=== PATIENT | female | born 1945 | race Caucasian/White ===

== ENCOUNTER 2016-08-01 09:58 | Emergency (ER) | payer MEDICARE ==
[2016-08-01 10:54] LABS: BASO % 0.2 % (0-6); EOS % 0.7 % (0-6); GRAN % 76.3 % (47-80); HEMATOCRIT 39.1 % (35.0-47.0); HEMOGLOBIN 12.9 gm/dl (11.6-16.0); LYMPH % 12.7 % (16-45); MEAN CELL VOLUME 93.8 fl (81-97); MEAN CORPUSCULAR HEMOGLOBIN 30.9 pg (27-33); MEAN PLATELET VOLUME 10.4 fl (7.4-10.4); MONO % 10.1 % (0-9); PLATELET COUNT 247 K/uL (130-400); RED BLOOD COUNT 4.17 M/uL (3.80-5.40); RED CELL DISTRIBUTION WIDTH 14.2 % (11.5-14.5); WHITE BLOOD COUNT W/O DIFF 5.4 K/uL (4.2-12.2)
[2016-08-01 11:07] LABS: ANION GAP 14.3 (7-16); BLOOD UREA NITROGEN 8 mg/dL (7-17); CARBON DIOXIDE 25.7 mmol/L (22-30); CREATININE 0.6 mg/dL (0.52-1.04); EST GLOMERULAR FILTRATION RATE > 60 ml/min; GLUCOSE,RANDOM 99 mg/dL (70-110)
--- NOTE | 2016-08-01 12:33 | Emergency Department Record ---
History of Present Illness - General Chief complaint: Mouth sores/ulcers Stated complaint: RED SPOTS ROOF OF MOUTH Time Seen by Provider: 08/01/16 10:27 Source: Patient Mode of Arrival: Ambulatory Limitations: No limitations - History of Present Illness Initial comments: pt has had a sore throat for 3 wks with difficulty swallowing, prod cough, sinus drainage. pt has had no fevers. pt is worried that she might have cancer as her sister had the same symptoms a year ago and had throat cancer and within a week of discovering it. MD complaint: Difficulty swallowing, Sore throat Onset/Timin -: Week(s) Location: Throat Severity: Moderate Severity scale (1-10): 8 Quality: Burning Consistency: Constant Improves with: None Worsens with: Swallowing Associated Symptoms: Cough, Pain with swallowing, Rhinorrhea, Sore throat - Related Data Home Medications Medication Instructions Recorded Confirmed Last Taken Bupropion HCl [Wellbutrin Xl] 300 mg PO DAILY 02/27/16 08/01/16 04/26/16 Dexlansoprazole [Dexilant] 60 mg PO DAILY 02/27/16 08/01/16 04/26/16 Estrogen,Con/M-Progest Acet 1 tab PO DAILY 02/27/16 08/01/16 04/26/16 [Prempro 0.625-2.5 mg Tablet] Latanoprost [Latanoprost] 1 drop EACH EYE DAILY 02/27/16 08/01/16 04/26/16 Previous Rx's Medication Instructions Recorded Azithromycin [Zithromax] 250 mg PO DAILY #6 tab 08/01/16 Allergies Allergy/AdvReac Type Severity Reaction Status Date / Time codeine AdvReac NAUSEA AND Verified 04/26/16 14:49 VOMITING Travel Screening - Travel/Exposure Within Last 30 Days Have you traveled within the last 30 days?: No Review of Systems Reviewed: No additional complaints except as noted below Constitutional: Reports: As per HPI. Denies: Chills, Fever, Malaise, Night sweats, Weakness, Weight change Eyes: Reports: As per HPI. Denies: Eye discharge, Eye pain, Photophobia, Vision change ENT: Reports: As per HPI. Denies: Congestion, Dental pain, Ear pain, Epistaxis , Hearing loss, Throat pain Respiratory: Reports: As per HPI. Denies: Cough, Dyspnea, Hemoptysis, Stridor, Wheezes Cardiovascular: Reports: As per HPI. Denies: Arrhythmia, Chest pain, Dyspnea on exertion, Edema, Murmurs, Orthopnea, Palpitations, Paroxysmal nocturnal dyspnea, Rheumatic Fever, Syncope Endocrine: Reports: As per HPI. Denies: Fatigue, Heat or cold intolerance, Polydipsia, Polyuria Gastrointestinal: Reports: As per HPI. Denies: Abdominal pain, Constipation, Diarrhea, Hematemesis, Hematochezia, Melena, Nausea, Vomiting Genitourinary: Reports: As per HPI. Denies: Abnormal menses, Discharge, Dyspareunia, Dysuria, Frequency, Hematuria, Incontinence, Retention, Urgency Musculoskeletal: Reports: As per HPI. Denies: Arthralgia, Back pain, Gout, Joint swelling, Myalgia, Neck pain Skin: Reports: As per HPI. Denies: Bruising, Change in color, Change in hair/ nails, Lesions, Pruritus, Rash Neurological: Reports: As per HPI. Denies: Abnormal gait, Confusion, Headache, Numbness, Paresthesias, Seizure, Tingling, Tremors, Vertigo, Weakness Psychiatric: Reports: As per HPI. Denies: Anxiety, Auditory hallucinations, Depression, Homicidal thoughts, Suicidal thoughts, Visual hallucinations Hematological/Lymphatic: Reports: As per HPI. Denies: Anemia, Blood Clots, Easy bleeding, Easy bruising, Swollen glands Past Medical History - SOCIAL HISTORY Smoking Status: Never smoker Alcohol Use: None Drug Use: None - RESPIRATORY Hx Respiratory Disorders: No - CARDIOVASCULAR Hx Cardio Disorders: No - NEURO Hx Neuro Disorders: No - GI Hx GI Disorders: Yes Hx Reflux: Yes - Hx Genitourinary Disorders: No - ENDOCRINE Hx Endocrine Disorders: No - MUSCULOSKELETAL Hx Musculoskeletal Disorders: No - PSYCH Hx Psych Problems: No - HEMATOLOGY/ONCOLOGY Hx Hematology/Oncology Disorders: No Family Medical History Any Significant Family History?: No Physical Exam - General General Appearance: Alert, Oriented x3, Cooperative, Mild distress - Head Head exam: Normal inspection - Eye Eye exam: Normal appearance, PERRL, EOMI Pupils: Normal accommodation - ENT ENT exam: Normal exam, Mucous membranes moist, Normal external ear exam, Normal orophraynx, TM's normal bilaterally Ear exam: Normal external inspection. negative: External canal tenderness Nasal Exam: Normal inspection. negative: Discharge, Sinus tenderness Mouth exam: Normal external inspection, Tongue normal Teeth exam: Normal inspection. negative: Dental caries Throat exam: Tonsillar erythema. negative: Tonsillar exudate - Neck Neck exam: Full ROM, Lymphadenopathy, Tenderness - Respiratory Respiratory exam: Normal lung sounds bilaterally. negative: Respiratory distress - Cardiovascular Cardiovascular Exam: Regular rate, Normal rhythm, Normal heart sounds - GI/Abdominal GI/Abdominal exam: Soft, Normal bowel sounds. negative: Tenderness - Rectal Rectal exam: Deferred - exam: Deferred - Extremities Extremities exam: Normal inspection, Full ROM, Normal capillary refill. negative: Tenderness - Back Back exam: Reports: Normal inspection, Full ROM. Denies: Muscle spasm, Rash noted, Tenderness - Neurological Neurological exam: Alert, CN II-XII intact, Normal gait, Oriented X3 - Psychiatric Psychiatric exam: Normal affect, Normal mood - Skin Skin exam: Dry, Intact, Normal color, Warm Course Vital Signs 08/01/16 10:04 Temperature 99.0 F Pulse Rate 91 H Respiratory 18 Rate Blood Pressure 130/70 Pulse Ox 96 Medical Decision Making - Management Options MDM Management: Additional Work-up Planned (e.g. ADM/Transfer/OP Study) - Data Complexity MDM Data: Labs Ordered and/or Reviewed, X-Ray Ordered and/or Reviewed - Lab Data Result diagrams: 08/01/16 10:45 08/01/16 10:45 Lab Results 08/01/16 08/01/16 08/01/16 Range/Units 10:45 10:45 10:45 WBC 5.4 (4.2-12.2) K/uL RBC 4.17 (3.80-5.40) M/uL Hgb 12.9 (11.6-16.0) gm/dl Hct 39.1 (35.0-47.0) % MCV 93.8 (81-97) fl MCH 30.9 (27-33) pg MCHC 33.0 (32-36) g/dl RDW 14.2 (11.5-14.5) % Plt Count 247 (130-400) K/uL MPV 10.4 (7.4-10.4) fl Gran % 76.3 (47-80) % Lymphocytes % 12.7 L (16-45) % Monocytes % 10.1 H (0-9) % Eosinophils % 0.7 (0-6) % Basophils % 0.2 (0-6) % Sodium 139 (136-145) mmol/L Potassium 3.7 (3.5-5.1) mmol/L Chloride 99 (98-107) mmol/L Carbon Dioxide 25.7 (22-30) mmol/L Anion Gap 14.3 (7-16) BUN 8 (7-17) mg/dL Creatinine 0.6 (0.52-1.04) mg/dL Estimated GFR > 60 ml/min Random Glucose 99 (70-110) mg/dL Calcium 8.6 (8.5-10.1) mg/dL Group A Strep Screen Negative (NEGATIVE) - Radiology Data Radiology results: Report reviewed, Image reviewed Disposition Disposition: Discharge Clinical Impression: Bronchitis Pharyngitis Qualifiers: Pharyngitis/tonsillitis etiology: unspecified etiology Qualified Code(s): J02.9 - Acute pharyngitis, unspecified Sinusitis Qualifiers: Sinusitis location: unspecified location Chronicity: acute Recurrence: non- recurrent Qualified Code(s): J01.90 - Acute sinusitis, unspecified Disposition: Home, Self-Care Condition: (1) Good Instructions: Acute Bronchitis (ED), Pharyngitis (ED), Sinusitis (ED) Additional Instructions: follow up with family doctor. return sooner if worse. if symptoms continue see an ENT physician Prescriptions: Azithromycin [Zithromax] 250 mg PO DAILY #6 tab Forms: Patient Portal Access
--- NOTE | 2016-08-04 13:36 | RADIOLOGY REPORT ---
EXAM: CHEST, TWO VIEWS HISTORY: CHEST PAIN. TECHNIQUE: Frontal and lateral views of the chest were obtained. Comparison: 02/27/16 chest. FINDINGS: The heart size is normal. Mild elevation of the left hemidiaphragm. The lungs are clear. No pneumothorax. IMPRESSION: NO ACUTE CARDIOPULMONARY PROCESS. JOB NUMBER: [] MTDD
--- NOTE | 2016-08-04 13:41 | CT SCAN REPORT ---
EXAM: CT OF THE NECK HISTORY: COUGH. TECHNIQUE: CT of the neck was performed following IV administration of 100 ml of Omnipaque 300 contrast. Axial images were obtained with coronal and sagittal reconstructions. Comparison: None. FINDINGS: Limited evaluation of the brain parenchyma is unremarkable. The globes are intact. Mucosal thickening of the ethmoid air cells bilaterally. The osseous structures are grossly intact. Limited evaluation of the lung apices is unremarkable. The visualized thyroid gland enhances normally. The parotid and submandibular glands are unremarkable. The visualized portions of the nasopharynx, oropharynx, and hypopharynx is unremarkable. The prevertebral soft tissues are normal. The airway is widely patent. No abnormal fluid collections or masses. The epiglottis and aryepiglottic folds are normal. IMPRESSION: MUCOSAL THICKENING OF THE ETHMOID AIR CELLS. THE REMAINDER IS UNREMARKABLE. JOB NUMBER: [id number] MTDD
== END 2016-08-01 12:50 | disposition home or self-care (01) ==
LOC: ER 09:58
DX: J20.9 Acute bronchitis, unspecified (principal); J02.9 Acute pharyngitis, unspecified; J01.90 Acute sinusitis, unspecified; R13.10 Dysphagia, unspecified
CPT/HCPCS: 99283; 99284; 85025; 80048; 87880; 71020; 70491; Q9967

== ENCOUNTER 2017-01-21 15:12 | Emergency (ER) | payer MEDICARE ==
--- NOTE | 2017-01-21 15:29 | Emergency Department Record ---
History of Present Illness - General Chief complaint: Female Urogenital Problem Stated complaint: UTI ? Time Seen by Provider: 01/21/17 15:23 Source: Patient Mode of Arrival: Ambulatory Limitations: No limitations - History of Present Illness Initial comments: The patient is here due to mild dysuria for 2-3 days. She denies any AP, nausea , vomiting, or back pain. She feels like she has a UTI. MD Complaint: Dysuria Onset/Timin -: Days(s) Severity scale (1-10): 2 Quality: Cramping, Dull Improves with: None Worsens with: Urination Patient : No Associated Symptoms: Denies other symptoms - Related Data Sexually active: No Home Medications Medication Instructions Recorded Confirmed Last Taken Bupropion HCl [Wellbutrin Xl] 300 mg PO DAILY 02/27/16 01/21/17 04/26/16 Estrogen,Con/M-Progest Acet 1 tab PO DAILY 02/27/16 01/21/17 04/26/16 [Prempro 0.625-2.5 mg Tablet] Latanoprost [Latanoprost] 1 drop EACH EYE DAILY 02/27/16 01/21/17 04/26/16 Omeprazole [Prilosec] 20 mg PO DAILY 01/21/17 01/21/17 Unknown Allergies Allergy/AdvReac Type Severity Reaction Status Date / Time codeine AdvReac NAUSEA AND Verified 04/26/16 14:49 VOMITING Travel Screening - Travel/Exposure Within Last 30 Days Have you traveled within the last 30 days?: No Review of Systems Constitutional: Denies: Chills, Fever Eyes: Denies: Eye discharge ENT: Denies: Congestion Respiratory: Denies: Cough, Dyspnea Past Medical History - SOCIAL HISTORY Smoking Status: Never smoker Alcohol Use: None Drug Use: None - RESPIRATORY Hx Respiratory Disorders: No - CARDIOVASCULAR Hx Cardio Disorders: No - NEURO Hx Neuro Disorders: No - GI Hx GI Disorders: Yes Hx Reflux: Yes - Hx Genitourinary Disorders: No - ENDOCRINE Hx Endocrine Disorders: No - MUSCULOSKELETAL Hx Musculoskeletal Disorders: No - PSYCH Hx Psych Problems: No - HEMATOLOGY/ONCOLOGY Hx Hematology/Oncology Disorders: No Family Medical History Any Significant Family History?: No Physical Exam - General General Appearance: Alert, Oriented x3, Cooperative, No acute distress - Head Head exam: Atraumatic, Normocephalic, Normal inspection - Eye Eye exam: Normal appearance, PERRL - Neck Neck exam: Normal inspection, Full ROM. negative: Tenderness - Respiratory Respiratory exam: Normal lung sounds bilaterally. negative: Respiratory distress - Cardiovascular Cardiovascular Exam: Regular rate, Normal rhythm, Normal heart sounds - GI/Abdominal GI/Abdominal exam: Soft, Normal bowel sounds. negative: Tenderness - Back Back exam: Denies: CVA tenderness (R), CVA tenderness (L) Course Vital Signs 01/21/17 15:19 Temperature 98.9 F Pulse Rate 18 L Respiratory 78 H Rate Blood Pressure 136/71 Pulse Ox 98 - Reevaluation(s) Reevaluation #1: I did inform the patient of the normal UA and the need for f/u with her PCP. 01/21/17 15:47 Disposition Disposition: Discharge Clinical Impression: History of dysuria Disposition: Home, Self-Care Condition: (1) Good Instructions: Dysuria (ED) Additional Instructions: Please drink plenty of fluids and see your PCP for further evaluation. Forms: Patient Portal Access Time of Disposition: 15:48 Quality - Quality Measures Quality Measures: N/A - Blood Pressure Screening View Details: Yes Blood Pressure Classification: Pre-Hypertensive BP Reading Systolic Measurement: 136 Diastolic Measurement: 71 Screening for High Blood Pressure: < Pre-Hypertensive BP, F/U Documented > [ G8950] Pre-Hypertensive Follow-up Interventions: Follow-up with rescreen every year.
[2017-01-21 15:36] LABS: URINE APPEARANCE CLEAR; URINE BILIRUBIN NEGATIVE (NEGATIVE); URINE BLOOD NEGATIVE (NEGATIVE); URINE COLOR YELLOW; URINE GLUCOSE (UA) NEGATIVE (NEGATIVE); URINE KETONE NEGATIVE (NEGATIVE); URINE LEUKOCYTE ESTERASE NEGATIVE (NEGATIVE); URINE NITRITE NEGATIVE (NEGATIVE); URINE PROTEIN NEGATIVE (NEGATIVE); URINE UROBILINOGEN 0.2 E.U./dL (0.20 - 1.00)
== END 2017-01-21 16:10 | disposition home or self-care (01) ==
LOC: ER 15:12
DX: R30.0 Dysuria (principal)
CPT/HCPCS: 81003; 99282

== ENCOUNTER 2017-03-04 14:50 | Emergency (ER) | payer MEDICARE ==
--- NOTE | 2017-03-04 15:15 | Emergency Department Record ---
History of Present Illness - General Chief complaint: ENT Stated complaint: SORE THROAT Time Seen by Provider: 03/04/17 15:07 Source: Patient Mode of Arrival: Ambulatory Limitations: No limitations - History of Present Illness Initial comments: 71 yo female presents with sore throat, ear aches, and cough. The onset was a few days ago. She denies any nausea or vomiting. No diarrhea. No rash. The cough is now productive. She had a brief episode of nausea and vomiting 2 days ago but that has resolved. No chest or abdominal pain. No edema. Her grandson has been ill as well. PCP Hankenson. LOVING complaint: Sore throat Onset/Timin -: Days(s) Location: R ear, L ear, Throat Severity: Moderate Quality: Aching Consistency: Intermittent Improves with: None Worsens with: None Associated Symptoms: Cough, Sore throat - Related Data Previous Rx's Medication Instructions Recorded Azithromycin [Zithromax] 250 mg PO DAILY #6 tab 03/04/17 Allergies Allergy/AdvReac Type Severity Reaction Status Date / Time codeine AdvReac NAUSEA AND Verified 03/04/17 15:14 VOMITING Travel Screening - Travel/Exposure Within Last 30 Days Have you traveled within the last 30 days?: No Review of Systems Constitutional: Denies: Chills, Fever, Malaise, Weakness Eyes: Denies: Eye discharge, Eye pain, Photophobia ENT: Reports: As per HPI, Ear pain, Throat pain. Denies: Congestion Respiratory: Reports: Cough. Denies: Dyspnea, Wheezes Cardiovascular: Denies: Chest pain, Palpitations, Syncope Endocrine: Denies: Fatigue Gastrointestinal: Denies: Abdominal pain, Diarrhea, Nausea, Vomiting Genitourinary: Denies: Dysuria, Urgency Musculoskeletal: Denies: Arthralgia, Back pain, Joint swelling, Myalgia, Neck pain Skin: Denies: Bruising, Change in color, Rash Neurological: Denies: Abnormal gait, Headache, Numbness, Vertigo, Weakness Psychiatric: Denies: Anxiety Hematological/Lymphatic: Denies: Anemia, Blood Clots, Easy bleeding, Easy bruising, Swollen glands Past Medical History - SOCIAL HISTORY Smoking Status: Never smoker Alcohol Use: None Drug Use: None - RESPIRATORY Hx Respiratory Disorders: No - CARDIOVASCULAR Hx Cardio Disorders: No - NEURO Hx Neuro Disorders: No - GI Hx GI Disorders: Yes Hx Reflux: Yes - Hx Genitourinary Disorders: No - ENDOCRINE Hx Endocrine Disorders: No - MUSCULOSKELETAL Hx Musculoskeletal Disorders: No - PSYCH Hx Psych Problems: No - HEMATOLOGY/ONCOLOGY Hx Hematology/Oncology Disorders: No Family Medical History Any Significant Family History?: No Physical Exam - General General Appearance: Alert, Oriented x3, Cooperative, No acute distress Limitations: No limitations - Head Head exam: Atraumatic, Normocephalic, Normal inspection - Eye Eye exam: Normal appearance. negative: Conjunctival injection, Periorbital swelling, Scleral icterus - ENT ENT exam: Normal exam, Mucous membranes moist Ear exam: Normal external inspection Nasal Exam: Discharge (clear) Mouth exam: Normal external inspection Teeth exam: Normal inspection Throat exam: Tonsillar erythema. negative: Tonsillar exudate, R peritonsillar mass, L peritonsillar mass - Neck Neck exam: Normal inspection - Respiratory Respiratory exam: Normal lung sounds bilaterally. negative: Accessory muscle use, Decreased breath sounds, Respiratory distress, Rhonchi, Stridor, Wheezes - Cardiovascular Cardiovascular Exam: Regular rate, Normal rhythm, Normal heart sounds Peripheral Pulses: 2+: Radial (R), Radial (L) - GI/Abdominal GI/Abdominal exam: Soft. negative: Tenderness - Rectal Rectal exam: Deferred - exam: Deferred - Extremities Extremities exam: Normal inspection. negative: Tenderness - Back Back exam: Denies: CVA tenderness (R), CVA tenderness (L) - Neurological Neurological exam: Alert, CN II-XII intact, Oriented X3. negative: Motor sensory deficit - Psychiatric Psychiatric exam: Normal affect, Normal mood. negative: Agitated, Anxious - Skin Skin exam: Dry, Intact, Normal color, Warm Course Vital Signs 03/04/17 15:05 Temperature 98.8 F Pulse Rate 88 Respiratory 20 Rate Blood Pressure 124/105 Pulse Ox 99 - Reevaluation(s) Reevaluation #1: Vitals reviewed No acute changes, no fever, no hypoxia or tachycardia 03/04/17 15:15 The strep and Flu are negative Given the productive sputum she will be treated 03/04/17 16:08 Disposition Disposition: Discharge Clinical Impression: Pharyngitis Qualifiers: Pharyngitis/tonsillitis etiology: unspecified etiology Qualified Code(s): J02.9 - Acute pharyngitis, unspecified Disposition: Home, Self-Care Condition: (1) Good Instructions: Pharyngitis (ED) Additional Instructions: Stay well hydrated Return if worse, fevers, short of breath or any concerns Follow up with your doctor in the next week if not improving Prescriptions: Azithromycin [Zithromax] 250 mg PO DAILY #6 tab Forms: Patient Portal Access Time of Disposition: 16:10 Quality - Quality Measures Quality Measures: N/A - Blood Pressure Screening Does Patient Have Any of the Following: No Blood Pressure Classification: Hypertensive Reading Systolic Measurement: 124 Diastolic Measurement: 105 Screening for High Blood Pressure: < Pre-Hypertensive BP, F/U Documented > [ G8950] Pre-Hypertensive Follow-up Interventions: Referral to alternative/primary care provider.
[2017-03-04 16:06] LABS: INFLUENZA A NEGATIVE (NEGATIVE); INFLUENZA B NEGATIVE (NEGATIVE); STREP A SCREEN NEGATIVE (NEGATIVE)
== END 2017-03-04 16:20 | disposition home or self-care (01) ==
LOC: ER 14:50
DX: J02.9 Acute pharyngitis, unspecified (principal)
CPT/HCPCS: 87400; 87880; 99282

== ENCOUNTER 2017-04-28 06:39 | Day surgery (SDC) | payer MEDICARE ==
[~2017-04-28 06:39] MED LIST: FAMOTIDINE 20MG TABLET PO ONE; MECLIZINE 25 MG TABLET PO ONE; METOCLOPRAMIDE 10 MG TABLET PO ONE
[2017-04-28] MEDS ORDERED: *PACU ONLY* KETAMINE HCL 10 MG/ML (20ML) VIAL IV ONE (06:40)
[2017-04-28] MEDS ORDERED: 0.9 % SODIUM CHLORIDE 10 ML VIAL IVP ONE (06:40)
[2017-04-28] MEDS ORDERED: DEXAMETHASONE PRESERVATIVE FREE 10MG/ML VIAL IV ONE (06:40)
[2017-04-28] MEDS ORDERED: BUPIVACAINE 0.75% W/EPI MPF 30ML VIAL IVP ONE (06:40)
[2017-04-28] MEDS ORDERED: MIDAZOLAM HCL 2MG/2ML VIAL IV ONE (06:40)
[2017-04-28] MEDS ORDERED: BUPIVACAINE 0.25% MPF 30ML VIAL IVP ONE (06:40)
[2017-04-28] MEDS ORDERED: LIDOCAINE 1% W/EPI 1:200,000 MPF 30ML SQ ONE (06:40)
[2017-04-28] MEDS ORDERED: PROPOFOL 10 MG/ML VIAL IV ONE (06:40)
--- NOTE | 2017-04-28 16:03 | Operative Note - [employer] ---
DATE OF SURGERY: 04/27/17 PREOPERATIVE DIAGNOSIS: RIGHT CERVICAL RADICULITIS, ICD-10 CODE = M54.13. OPERATION: FLUOROSCOPICALLY-GUIDED CERVICAL EPIDURAL INJECTION RIGHT QUADRANT C5-6. SURGEON: SHAHRIAR ROSAS D.O. ANESTHESIA: LOCAL SEDATION. ANESTHESIA PROVIDER: PADMINI ALVAREZ CRNA. INDICATION: This patient presents with pain, which starts in the neck but then extends into the shoulder and arm. Diagnostic studies reviewed showing a 4-5 and a 5-6 disc. PROCEDURE: Intravenous line, vital sign monitoring, IV sedation, prepped, draped, sterile technique. Consistent with the pattern of pain into the right shoulder and arm at 5-6, skin infiltrated then a 20-gauge, 2.5 inch Tuohy needle with [id number]. 5 mL of 0.125% Marcaine with Dexamethasone injected. Needle removed. Neck cleaned. Topical antibiotic. Sterile dressing applied. We will monitor and evaluate. JOB NUMBER: [id number] MTDD
== END 2017-04-28 08:42 | disposition home or self-care (01) ==
LOC: SUR 06:39
PROVIDERS: ATTEND Pain Medicine Interventional Pain Medicine
DX: M54.13 Radiculopathy, cervicothoracic region (principal)
CPT/HCPCS: 62321; 01936; J1100; J3490

== ENCOUNTER 2018-03-13 20:11 | Emergency (ER) | payer MEDICARE ==
[2018-03-13 20:34] LABS: URINE APPEARANCE CLOUDY; URINE BILIRUBIN NEGATIVE (NEGATIVE); URINE BLOOD NEGATIVE (NEGATIVE); URINE COLOR YELLOW; URINE GLUCOSE (UA) NEGATIVE (NEGATIVE); URINE KETONE NEGATIVE (NEGATIVE); URINE LEUKOCYTE ESTERASE TRACE (NEGATIVE); URINE NITRITE NEGATIVE (NEGATIVE); URINE PROTEIN NEGATIVE (NEGATIVE); URINE UROBILINOGEN 0.2 E.U./dL (0.20 - 1.00)
--- NOTE | 2018-03-13 20:36 | Emergency Department Record ---
History of Present Illness - General Chief complaint: Female Urogenital Problem Stated complaint: "I THINK MY BLADDER IS FALLING OUT" Time Seen by Provider: 03/13/18 20:21 Source: Patient Mode of Arrival: Ambulatory Limitations: No limitations - History of Present Illness Initial comments: 72 yo female presents with a feeling of pressure in the bladder area. She was bearing down and was worried it prolapsed. This has occurred in her sister in the past but not her. No retention of urine or incontinence. No fevers or chills. No hematuria. She has had some urinary frequency. No difficulty with bowel movements but she is very gassy. No history of pelvic surgery in the past. She does report doing a lot of lifting recently as well. MD Complaint: Pelvic pain -: Hour(s) Location: Perineum Radiation: Non-radiating Severity: Moderate Quality: Other Consistency: Intermittent Improves with: None Worsens with: Urination - Related Data Home Medications Medication Instructions Recorded Confirmed Last Taken Meclizine HCl [Antivert] 25 mg PO QHS 03/13/18 03/13/18 03/13/18 Allergies Allergy/AdvReac Type Severity Reaction Status Date / Time codeine AdvReac NAUSEA AND Verified 03/04/17 15:14 VOMITING Review of Systems Constitutional: Denies: Chills, Fever, Weakness Eyes: Denies: Eye discharge ENT: Denies: Congestion, Throat pain Respiratory: Denies: Cough Cardiovascular: Denies: Chest pain, Syncope Endocrine: Denies: Fatigue Gastrointestinal: Reports: As per HPI, Abdominal pain. Denies: Diarrhea, Nausea , Vomiting Genitourinary: Reports: As per HPI, Dysuria. Denies: Frequency, Hematuria, Retention Musculoskeletal: Denies: Arthralgia, Back pain, Neck pain Skin: Denies: Bruising, Change in color, Rash Neurological: Denies: Numbness, Weakness Psychiatric: Denies: Anxiety Hematological/Lymphatic: Denies: Easy bleeding, Easy bruising Past Medical History - SOCIAL HISTORY Smoking Status: Never smoker Alcohol Use Comment: 1 drink every night - RESPIRATORY Hx Respiratory Disorders: No - CARDIOVASCULAR Hx Cardio Disorders: No - NEURO Hx Neuro Disorders: No - GI Hx GI Disorders: Yes Hx Reflux: Yes Comment:: hx of bowel blockage no surgery - Hx Genitourinary Disorders: Yes Hx Bladder Problem: Yes (iurgency stress incontinence) - ENDOCRINE Hx Endocrine Disorders: No - MUSCULOSKELETAL Hx Musculoskeletal Disorders: Yes Hx Arthritis: Yes - PSYCH Hx Psych Problems: Yes Hx Depression: Yes - HEMATOLOGY/ONCOLOGY Hx Hematology/Oncology Disorders: No Family Medical History Hx Cancer: Father, Brother/Sister Hx Heart Disease: Mother, Brother/Sister Hx HTN: Mother Physical Exam - General General Appearance: Alert, Oriented x3, Cooperative, No acute distress Limitations: No limitations - Head Head exam: Atraumatic, Normal inspection - Eye Eye exam: Normal appearance. negative: Conjunctival injection, Scleral icterus - ENT ENT exam: Normal exam Ear exam: Normal external inspection Nasal Exam: Normal inspection Mouth exam: Normal external inspection - Neck Neck exam: Normal inspection - GI/Abdominal GI/Abdominal exam: Soft. negative: Distended, Guarding, Rebound, Rigid, Tenderness - Rectal Rectal exam: Other (Normal inspection) - exam: Abnormal external exam, Normal external exam, Normal speculum exam, Other (No visible prolapse, the tissues are soft on examination, no masses). negative: Adnexal mass (L), Adnexal mass (R), Adnexal tenderness (L), Adnexal tenderness (R), Cervical discharge, cervical motion tenderness, Vaginal bleeding , Vaginal discharge, Vaginal erythema - Extremities Extremities exam: Normal inspection - Neurological Neurological exam: Alert, Oriented X3 - Psychiatric Psychiatric exam: Normal affect, Normal mood - Skin Skin exam: Dry, Intact, Normal color, Warm Course Vital Signs 03/13/18 20:21 Temperature 98.9 F Pulse Rate [ 80 Pulse Ox Probe] Respiratory 20 Rate Blood Pressure 155/95 [Right Arm] Pulse Ox 97 - Reevaluation(s) Reevaluation #1: 03/13/18 20:43 No acute sign of UTI. 03/13/18 20:47 No prolapse that is visible on examination Disposition Disposition: Discharge Clinical Impression: Dysuria, Pelvic pain in female Disposition: Home, Self-Care Condition: (1) Good Instructions: Pelvic Pain in Women (ED) Additional Instructions: Call the marine electronics technician's office tomorrow for follow up Avoid heavy lifting or bearing down. Return if you have pain or see the bladder protruding Referrals: CARISSA MARTINES D.O. [DOCTOR OF OSTEOPATH] - Forms: Patient Portal Access Time of Disposition: 20:48 Quality - Quality Measures Quality Measures: N/A - Blood Pressure Screening Does Patient Have Any of the Following: No Blood Pressure Classification: Hypertensive Reading Systolic Measurement: 155 Diastolic Measurement: 95 Screening for High Blood Pressure: < Pre-Hypertensive BP, F/U Documented > [ G8950] Pre-Hypertensive Follow-up Interventions: Referral to alternative/primary care provider.
[2018-03-13 20:41] LABS: URINE BACTERIA NONE SEEN; URINE EPITHELIAL CELLS 0 - 2 (FEW); URINE RBC NONE SEEN (NONE SEEN); URINE WBC 0 - 2 (0-2/hpf)
== END 2018-03-13 20:57 | disposition home or self-care (01) ==
LOC: ER 20:11
DX: R10.2 Pelvic and perineal pain (principal); R30.0 Dysuria
CPT/HCPCS: 81001; 99284

== ENCOUNTER 2018-05-04 08:31 | Emergency (ER) | payer MEDICARE ==
[2018-05-04] MEDS ORDERED: MAGNESIUM HYDROXIDE/AL HYDROX 30 ML, LIDOCAINE VISC 2% 15ML 15 ML PO ONE ×2 (09:48)
[2018-05-04] MEDS ORDERED: ONDANSETRON HCL IV 4 MG/2 ML VIAL IVP ONE (09:48)
[2018-05-04] MEDS ORDERED: 0.9 % SODIUM CHLORIDE 1000ML 1,000 ML IV PRN (09:49)
--- NOTE | 2018-05-04 10:06 | Emergency Department Record ---
History of Present Illness - General Chief Complaint: Abdominal Pain Stated Complaint: STOMACH PAINS Time Seen by Provider: 05/04/18 08:52 Source: Patient, RN notes reviewed Mode of Arrival: Ambulatory - History of Present Illness Initial Comments: Patient has epigastric abd pain which started one week ago and she is using motrin 600 mg three times a day for pain post hysterectomy and bladder suspension about one month ago. Patient stopped ibuprofen 36 hours ago. Hysterectomy mar Currently she takes omeprazole 20 mg once aday, She denies blood in her stool or black stool. BM this am Onset/Timin -: Month(s) Location: Diffuse Severity: Moderate Severity scale (1-10): 7 Quality: Burning Consistency: Intermittent Improves With: Medication Worsens With: Other - Related Data Previous Rx's Medication Instructions Recorded Sucralfate [Carafate] 1 gm PO QIDACHS #40 tablet 05/04/18 Allergies Allergy/AdvReac Type Severity Reaction Status Date / Time codeine AdvReac NAUSEA AND Verified 05/04/18 08:35 VOMITING Travel Screening - Travel/Exposure Within Last 30 Days Have you traveled within the last 30 days?: No - Travel/Exposure Within Last Year Have you traveled outside the [place] in the last year?: No - Additonal Travel Details Have you been exposed to anyone with a communicable illness?: No - Travel Symptoms Symptom Screening: None Review of Systems Reviewed: No additional complaints except as noted below Constitutional: Reports: As per HPI. Denies: Chills, Fever, Malaise, Night sweats, Weakness, Weight change Eyes: Reports: As per HPI. Denies: Eye discharge, Eye pain, Photophobia, Vision change ENT: Reports: As per HPI. Denies: Congestion, Dental pain, Ear pain, Epistaxis , Hearing loss, Throat pain Respiratory: Reports: As per HPI. Denies: Cough, Dyspnea, Hemoptysis, Stridor, Wheezes Cardiovascular: Reports: As per HPI. Denies: Arrhythmia, Chest pain, Dyspnea on exertion, Edema, Murmurs, Orthopnea, Palpitations, Paroxysmal nocturnal dyspnea, Rheumatic Fever, Syncope Endocrine: Reports: As per HPI. Denies: Fatigue, Heat or cold intolerance, Polydipsia, Polyuria Gastrointestinal: Reports: As per HPI, Abdominal pain. Denies: Constipation, Diarrhea, Hematemesis, Hematochezia, Melena, Nausea, Vomiting Genitourinary: Reports: As per HPI. Denies: Abnormal menses, Discharge, Dyspareunia, Dysuria, Frequency, Hematuria, Incontinence, Retention, Urgency Musculoskeletal: Reports: As per HPI. Denies: Arthralgia, Back pain, Gout, Joint swelling, Myalgia, Neck pain Skin: Reports: As per HPI. Denies: Bruising, Change in color, Change in hair/ nails, Lesions, Pruritus, Rash Neurological: Reports: As per HPI. Denies: Abnormal gait, Confusion, Headache, Numbness, Paresthesias, Seizure, Tingling, Tremors, Vertigo, Weakness Psychiatric: Reports: As per HPI. Denies: Anxiety, Auditory hallucinations, Depression, Homicidal thoughts, Suicidal thoughts, Visual hallucinations Hematological/Lymphatic: Reports: As per HPI. Denies: Anemia, Blood Clots, Easy bleeding, Easy bruising, Swollen glands Past Medical History - SOCIAL HISTORY Smoking Status: Never smoker Alcohol Use: Rare Drug Use: None - RESPIRATORY Hx Respiratory Disorders: No - CARDIOVASCULAR Hx Cardio Disorders: No - NEURO Hx Neuro Disorders: No - GI Hx GI Disorders: Yes Hx Reflux: Yes Comment:: hx of bowel blockage no surgery - Hx Genitourinary Disorders: Yes Hx Bladder Problem: Yes (iurgency stress incontinence) - ENDOCRINE Hx Endocrine Disorders: No - MUSCULOSKELETAL Hx Musculoskeletal Disorders: Yes Hx Arthritis: Yes - PSYCH Hx Psych Problems: Yes Hx Depression: Yes - HEMATOLOGY/ONCOLOGY Hx Hematology/Oncology Disorders: No Family Medical History Any Significant Family History?: Yes Hx Cancer: Father, Brother/Sister Hx Heart Disease: Mother, Brother/Sister Hx HTN: Mother Physical Exam - General General Appearance: Alert, Oriented x3, Cooperative, No acute distress - Head Head exam: Normal inspection - Eye Eye exam: Normal appearance, PERRL Pupils: Normal accommodation - ENT ENT exam: Normal exam, Mucous membranes moist, Normal external ear exam, Normal orophraynx, TM's normal bilaterally Ear exam: Normal external inspection. negative: External canal tenderness Nasal Exam: Normal inspection. negative: Discharge, Sinus tenderness Mouth exam: Normal external inspection, Tongue normal Teeth exam: Normal inspection. negative: Dental caries Throat exam: Normal inspection. negative: Tonsillar erythema, Tonsillar exudate - Neck Neck exam: Normal inspection, Full ROM. negative: Tenderness - Respiratory Respiratory exam: Normal lung sounds bilaterally. negative: Respiratory distress - Cardiovascular Cardiovascular Exam: Regular rate, Normal rhythm, Normal heart sounds - GI/Abdominal GI/Abdominal exam: Soft, Normal bowel sounds, Tenderness (epigastric pain) - Rectal Rectal exam: Deferred - exam: Deferred - Extremities Extremities exam: Normal inspection, Full ROM, Normal capillary refill. negative: Tenderness - Back Back exam: Reports: Normal inspection, Full ROM. Denies: Muscle spasm, Rash noted, Tenderness - Neurological Neurological exam: Alert, Normal gait, Oriented X3, Reflexes normal - Psychiatric Psychiatric exam: Normal affect, Normal mood - Skin Skin exam: Dry, Intact, Normal color, Warm Course Vital Signs 05/04/18 08:38 Temperature 98.4 F Pulse Rate 82 Respiratory 16 Rate Blood Pressure 140/75 Pulse Ox 100 - Reevaluation(s) Reevaluation #1: 05/04/18 10:24 feeling better Medical Decision Making - Lab Data Result diagrams: 05/04/18 09:35 05/04/18 09:35 Disposition Clinical Impression: Gastritis Qualifiers: Gastritis type: unspecified gastritis Chronicity: acute Gastritis bleeding: without bleeding Qualified Code(s): K29.00 - Acute gastritis without bleeding Disposition: Home, Self-Care Condition: (1) Good Instructions: Gastritis (ED) Additional Instructions: follow up with family in 2 day for a recheck stop motrin use tylenol for pain Prescriptions: Sucralfate [Carafate] 1 gm PO QIDACHS #40 tablet Forms: Patient Portal Access Time of Disposition: 11:33 Quality - Quality Measures Quality Measures: N/A - Blood Pressure Screening Does Patient Have Any of the Following: No Blood Pressure Classification: Hypertensive Reading Systolic Measurement: 140 Diastolic Measurement: 75 Screening for High Blood Pressure: < Pre-Hypertensive BP, F/U Documented > [ [id number]] Pre-Hypertensive Follow-up Interventions: Referral to alternative/primary care provider.
[2018-05-04 10:20] LABS: BASO % 0.3 % (0-6); EOS % 0.6 % (0-6); GRAN % 73.5 % (47-80); HEMATOCRIT 39.3 % (35.0-47.0); HEMOGLOBIN 12.8 gm/dl (11.6-16.0); LYMPH % 16.7 % (16-45); MEAN CELL VOLUME 92.9 fl (81-97); MEAN CORPUSCULAR HEMOGLOBIN 30.3 pg (27-33); MEAN CORPUSCULAR HGB CONC 32.6 g/dl (32-36); MEAN PLATELET VOLUME 10.7 fl (7.4-10.4); MONO % 8.9 % (0-9); PLATELET COUNT 343 K/uL (130-400); RED BLOOD COUNT 4.23 M/uL (3.80-5.40); RED CELL DISTRIBUTION WIDTH 14.4 % (11.5-14.5); WHITE BLOOD COUNT W/O DIFF 6.5 K/uL (4.2-12.2)
[2018-05-04 10:29] LABS: BLOOD UREA NITROGEN 12 mg/dL (8-23); CREATININE 0.5 mg/dL (0.5-0.9); EST GLOMERULAR FILTRATION RATE > 60 mL/min
[2018-05-04 10:30] LABS: INR 0.9; PARTIAL THROMBOPLASTIN TIME 24.1 SECONDS (24.5-39.1); PROTHROMBIN TIME (PATIENT) 9.4 SECONDS (9.5-12.1)
[2018-05-04 10:32] LABS: GLUCOSE,RANDOM 100 mg/dL (74-109)
[2018-05-04 10:35] LABS: LIPASE 30 U/L (13-60)
[2018-05-04 10:49] LABS: URINE APPEARANCE CLEAR; URINE BILIRUBIN NEGATIVE (NEGATIVE); URINE BLOOD NEGATIVE (NEGATIVE); URINE COLOR YELLOW; URINE GLUCOSE (UA) NEGATIVE (NEGATIVE); URINE KETONE NEGATIVE (NEGATIVE); URINE LEUKOCYTE ESTERASE SMALL (NEGATIVE); URINE NITRITE NEGATIVE (NEGATIVE); URINE PROTEIN NEGATIVE (NEGATIVE); URINE UROBILINOGEN 0.2 E.U./dL (0.20 - 1.00)
[2018-05-04 11:30] LABS: URINE BACTERIA FEW; URINE RBC NONE SEEN (NONE SEEN)
[2018-05-04 12:16] LABS: ALBUMIN 3.9 g/dL (4.0-5.0); ALKALINE PHOSPHATASE 73 U/L (35-104); ALT/SGPT 20 U/L (<33); AST/SGOT 18 U/L (10.0-35.0); BILIRUBIN,DIRECT < 0.2 mg/dL (0-0.3); TOTAL PROTEIN 6.5 g/dL (6.6-8.7)
== END 2018-05-04 11:47 | disposition home or self-care (01) ==
LOC: ER 08:31
DX: K29.00 Acute gastritis without bleeding (principal)
CPT/HCPCS: 80048; 80076; 81001; 82272; 83690; 85025; 85610; 85730; 96374; 99284; J2405

== ENCOUNTER 2019-06-16 16:42 | Emergency (ER) | payer MEDICARE ==
[2019-06-16] MEDS ORDERED: ONDANSETRON HCL IV 4 MG/2 ML VIAL IV ONE (17:10)
[2019-06-16] MEDS ORDERED: 0.9 % SODIUM CHLORIDE 1,000 ML BAG IV ONE (17:10)
[2019-06-16] MEDS ORDERED: ACETAMINOPHEN 1,000 MG/100 ML BTL IVPB ONE (17:11)
--- NOTE | 2019-06-16 17:14 | Emergency Department Record ---
History of Present Illness - General Chief Complaint: Abdominal Pain Stated Complaint: ABD PAINS Time Seen by Provider: 06/16/19 17:06 Source: Patient Mode of Arrival: Ambulatory Limitations: No limitations - History of Present Illness Initial Comments: The patient is here due to a 5 hour hx of abdominal cramping and nausea but no vomiting. The pain comes in waves and feels like the time she had an SBO in the past. She denies any fever, chills, diarrhea, CP, SOB, or back pain. The patient has had multiple abdominal surgeries and was once at [facility] [place] for 3 days for the SBO but did not need surgery. MD Complaint: Abdominal pain Onset/Timin -: Hour(s) Location: Periumbilical Severity: Moderate, Severe Severity scale (1-10): 8 Quality: Aching, Cramping, Sharp - Related Data Patient : No Allergies Allergy/AdvReac Type Severity Reaction Status Date / Time codeine AdvReac NAUSEA AND Verified 06/16/19 17:06 VOMITING Travel Screening - Travel/Exposure Within Last 30 Days Have you traveled within the last 30 days?: No - Travel/Exposure Within Last Year Have you traveled outside the [place] in the last year?: No - Additonal Travel Details Have you been exposed to anyone with a communicable illness?: No - Travel Symptoms Symptom Screening: None Review of Systems Constitutional: Denies: Chills, Fever Eyes: Denies: Eye discharge ENT: Denies: Congestion Respiratory: Denies: Cough Cardiovascular: Denies: Arrhythmia, Chest pain Endocrine: Denies: Fatigue Gastrointestinal: Reports: Abdominal pain, Nausea. Denies: Diarrhea, Vomiting Genitourinary: Denies: Dysuria Musculoskeletal: Denies: Arthralgia, Back pain Neurological: Denies: Abnormal gait Past Medical History - SOCIAL HISTORY Smoking Status: Never smoker Alcohol Use: None Drug Use: None - RESPIRATORY Hx Respiratory Disorders: No - CARDIOVASCULAR Hx Cardio Disorders: No - NEURO Hx Neuro Disorders: No - GI Hx GI Disorders: Yes Hx Reflux: Yes Hx Obstructive Bowel: Yes Comment:: hx of bowel blockage no surgery - Hx Genitourinary Disorders: Yes Hx Bladder Problem: Yes (iurgency stress incontinence) - ENDOCRINE Hx Endocrine Disorders: No - MUSCULOSKELETAL Hx Musculoskeletal Disorders: Yes Hx Arthritis: Yes - PSYCH Hx Psych Problems: Yes Hx Depression: Yes - HEMATOLOGY/ONCOLOGY Hx Hematology/Oncology Disorders: No Family Medical History Any Significant Family History?: Yes Hx Cancer: Father, Brother/Sister Hx Heart Disease: Mother, Brother/Sister Hx HTN: Mother Physical Exam - General General Appearance: Alert, Oriented x3, Cooperative, No acute distress - Head Head exam: Atraumatic, Normocephalic, Normal inspection - Eye Eye exam: Normal appearance, PERRL - ENT Throat exam: Normal inspection. negative: Tonsillar erythema, Tonsillar exudate - Neck Neck exam: Normal inspection, Full ROM. negative: Tenderness - Respiratory Respiratory exam: Normal lung sounds bilaterally. negative: Respiratory distress - Cardiovascular Cardiovascular Exam: Regular rate, Normal rhythm, Normal heart sounds - GI/Abdominal GI/Abdominal exam: Tenderness (There is tenderness in all 4 quads.). negative: Soft, Distended, Rebound, Rigid - Extremities Extremities exam: Normal inspection, Full ROM, Normal capillary refill. negative: Tenderness Course Vital Signs 06/16/19 16:56 Temperature 97.7 F Pulse Rate 72 Respiratory 18 Rate Blood Pressure 170/91 Pulse Ox 99 - Reevaluation(s) Reevaluation #1: I did discuss the lab and CT results with the patient. Due to the SBO I did recommend transfer to a larger hospital and she did choose [facility] [facility]. We have placed a page out for Dr. Garduno. 06/16/19 18:56 Reevaluation #2: We have been unable to contact Dr. Garduno so we will do an ER to ER transfer to [facility]. I did discuss the case with Dr. Smith in the ER at [facility] and he does accept the patient in transfer. 06/16/19 19:23 Medical Decision Making - Data Complexity MDM Data: Labs Ordered and/or Reviewed, X-Ray Ordered and/or Reviewed - Lab Data Result diagrams: 06/16/19 17:15 06/16/19 17:15 - Radiology Data Radiology results: Report reviewed (CT: Distal SBO) Disposition Disposition: Transfer Clinical Impression: SBO (small bowel obstruction) Disposition: Acute Care Hospital Transfer Transfer To: [facility] ER Reason For Transfer: SBO Accepting Physician: Luis Time Discussed w/Accepting Physician: 19:22 Condition: (2) Stable Forms: Patient Portal Access Time of Disposition: 19:22 Quality - Quality Measures Quality Measures: N/A - Blood Pressure Screening View Details: Yes Does Patient Have Any of the Following: Active Dx of HTN Blood Pressure Classification: Hypertensive Reading Systolic Measurement: 170 Diastolic Measurement: 91 Screening for High Blood Pressure: Patient Exclusion, Hx of HTN [[id number]]
[2019-06-16 17:40] LABS: BASO % 0.1 % (0-6); EOS % 0.3 % (0-6); GRAN % 76.6 % (47-80); HEMATOCRIT 40.7 % (35.0-47.0); HEMOGLOBIN 12.8 gm/dl (11.6-16.0); LYMPH % 16.3 % (16-45); MEAN CELL VOLUME 98.8 fl (81-97); MEAN CORPUSCULAR HEMOGLOBIN 31.1 pg (27-33); MEAN CORPUSCULAR HGB CONC 31.4 g/dl (32-36); MEAN PLATELET VOLUME 10.3 fl (7.4-10.4); MONO % 6.7 % (0-9); PLATELET COUNT 303 K/uL (130-400); RED BLOOD COUNT 4.12 M/uL (3.80-5.40); RED CELL DISTRIBUTION WIDTH 14.8 % (11.5-14.5); WHITE BLOOD COUNT W/O DIFF 8.8 K/uL (4.2-12.2)
[2019-06-16 17:51] LABS: BLOOD UREA NITROGEN 10 mg/dL (8-23); CREATININE 0.6 mg/dL (0.5-0.9); EST GLOMERULAR FILTRATION RATE > 60 mL/min; LIPASE 25 U/L (13-60)
[2019-06-16 17:53] LABS: GLUCOSE,RANDOM 103 mg/dL (74-109)
[2019-06-16 17:56] LABS: ALBUMIN 4.1 g/dL (4.0-5.0); ALKALINE PHOSPHATASE 70 U/L (35-104); ALT/SGPT 32 U/L (<33); AST/SGOT 24 U/L (10.0-35.0)
[2019-06-16 17:57] LABS: BILIRUBIN,DIRECT < 0.2 mg/dL (0-0.3)
[2019-06-16] MEDS ORDERED: HYDROMORPHONE HCL 2 MG/ML VIAL IVP ONE ×2 (18:02→19:21)
--- NOTE | 2019-06-16 18:51 | CT SCAN REPORT ---
EXAMINATION: CT Abdomen and Pelvis without IV Contrast EXAM DATE: 06/16/2019 6:05 PM TECHNIQUE: Standard protocol CT imaging of the abdomen and pelvis was performed without intravenous c ontrast. INDICATION: AP with hx of SBO COMPARISON: 2016 CT scan. ENCOUNTER: Not applicable CT ABDOMEN AND PELVIS FINDINGS: Lung Bases: Included extent of the lung bases are clear. Hepatobiliary: The liver has a normal size with a smooth surface. Status post cholecystectomy. Pancreas: The pancreas is normal. Spleen: The spleen is not enlarged. Adrenals: The adrenal glands are normal. Kidneys, Ureters, & Bladder: Both kidneys have a normal size and morphology. There is no hydronephro sis. Both ureters have a normal course and caliber and the urinary bladder a normal morphology and un iform wall thickness. No ureteral or bladder calculi are identified. Gastrointestinal: There are multiple dilated, fluid-filled loops of small bowel within the abdomen wi th relative decompression of distal small bowel loops and the colon, consistent with distal small bow el obstruction. There is a possible transition point within the mid abdomen near midline, just anteri or to the aorta, without evidence of obstructing mass, likely due to adhesions. There is no evidence of associated pneumatosis, mesenteric or portal venous gas, or free air. There is colonic diverticulo sis without evidence of diverticulitis. Reproductive Organs: Status post hysterectomy. Pessary in place. Lymphatic System: There is no adenopathy within the abdomen or pelvis. Vasculature: Severe atherosclerosis. No aneurysm. Peritoneum: No free fluid, free air, or inflammation Abdominal wall & Musculoskeletal: No suspicious bone lesions. Assessment of the solid organs, soft tissues, and vascular structures is overall limited on noncontra st imaging, IMPRESSION: Distal small bowel obstruction with likely transition point within the midabdomen just anterior to th e aorta, likely secondary to adhesions. Dictated by: Ean Desir MD on 06/16/2019 6:29 PM. .
== END 2019-06-16 19:39 | disposition short-term general hospital (02) ==
LOC: ER 16:42
DX: K56.609 Unspecified intestinal obstruction, unspecified as to partial versus complete obstruction (principal); I10 Essential (primary) hypertension; Z87.891 Personal history of nicotine dependence
CPT/HCPCS: 99285 ×2; 96376; 96365; 96375; 83605; 83690; 85025; 80076; 80048; 74176; J2405; J1170; J7030